=== PATIENT | female | born 1995 | race Hispanic/Latino ===

== ENCOUNTER 2022-08-20 12:45 | Emergency (ER) | payer OTHER ==
[2022-08-20 13:36] LABS: #Eosinphils 0.1 10x3/uL (0.0-0.5); #Monocytes 0.4 10x3/uL (0.0-1.1); %Basophils 0.3 % (0.0-2.0); %Eosinophils 0.8 % (0.0-6.0); %Lymphocytes 15.7 % (18.0-47.0); %Monocytes 4.9 % (0.0-10.0); Hemoglobin 10.3 g/dL (12.0-15.5); Mean Corpuscular HGB CONC 33.7 g/dL (32.0-36.0); Mean Corpuscular Hemoglobin 29.3 pg (27.0-33.0); Mean Corpuscular Volume 86.9 fl (81.6-98.3); Mean Platelet Volume 10.2 fl (7.4-10.4); Platelet Count 390 10x3/uL (150-450); RBC Distribution Width 12.1 % (11.5-14.5); Red Blood Cell (RBC) Count 3.52 10x6/uL (3.90-5.03)
[2022-08-20 13:48] LABS: ALT (SGPT) 33 U/L (8-55); AST (SGOT) 22 U/L (5-34); Albumin 3.3 g/dL (3.5-5.0); Alkaline Phosphatase 159 U/L (40-110); Anion Gap 14 mmol/L (10-20); BUN (Urea Nitrogen) 6 mg/dL (7.0-18.7); Bilirubin, Total 0.6 mg/dL (0.2-1.2); Calc. Creatinine Clearance 0 mL/min (70-130); Calcium 8.7 mg/dL (7.8-10.44); Carbon Dioxide 19 mmol/L (22-29); Chloride 108 mmol/L (98-107); Estimated GFR 127; Glucose 122 mg/dL (70-105); Potassium 3.9 mmol/L (3.5-5.1); Protein, Total 6.3 g/dL (6.0-8.3); Sodium 137 mmol/L (136-145)
[2022-08-20 15:07] LABS: Syphilis Antibody Nonreactive (Nonreactive); Syphilis Antibody Index 0.02 S/CO (<1.00 Non-Reactive)
[2022-08-20 15:09] LABS: HIV (1/2) Antibody/Antigen Non-Reactive (NonReactive); HIV 1/2 INDEX 0.08 S/CO (<1.00)
== END 2022-08-20 14:19 | disposition home or self-care (01) ==
LOC: CSHERS 12:45
DX: O99.891 Other specified diseases and conditions complicating pregnancy (principal); R06.02 Shortness of breath; Z3A.36 36 weeks gestation of pregnancy
CPT/HCPCS: 36415; 71045; 80053; 83880; 84484; 85025; 86780; 87389; 93005

== ENCOUNTER 2022-09-09 19:00 | Inpatient (IN) | payer OTHER ==
[2022-09-10] MEDS ORDERED: Terbutaline Sulfate 1 MG/ML VIAL ONE (08:00)
[2022-09-10] MEDS ORDERED: Bupivacaine PF 0.5% 30 ML VIAL ONE (08:00)
[2022-09-10] MEDS ORDERED: ePHEDrine Sulfate 50 MG/10 ML VIAL ONE (08:00)
[2022-09-10 14:30] VITALS: BMI 50.1
[2022-09-10] MEDS ORDERED: Acetaminophen 500 MG TAB PO PRN (14:38)
[2022-09-10] MEDS ORDERED: Carboprost 250 MCG/ML AMP IM PRN (14:38)
[2022-09-10] MEDS ORDERED: Methylergonovine 0.2 MG/ML VIAL IM PRN (14:38)
[2022-09-10] MEDS ORDERED: Docusate 100 MG CAP PO PRN (14:38)
[2022-09-10] MEDS ORDERED: Misoprostol 200 MCG TAB PR PRN (14:38)
[2022-09-10] MEDS ORDERED: Ondansetron PF 4 MG/2 ML Vial IVP PRN (14:38)
[2022-09-10] MEDS ORDERED: Lidocaine 1% (PF) 30 ML VIAL SC PRN (14:38)
[2022-09-10] MEDS ORDERED: Ibuprofen 800 MG TAB PO PRN (14:38)
[2022-09-10] MEDS ORDERED: hydrALAZINE 20 MG/ML VIAL SLOW IVP PRN (14:38)
[2022-09-10] MEDS ORDERED: NS w/ Oxytocin 30 units 500 ML IV SCH ×2 (14:45)
[2022-09-10 15:28] LABS: Hemoglobin 11.2 g/dL (12.0-15.5); Mean Corpuscular HGB CONC 33.4 g/dL (32.0-36.0); Mean Corpuscular Hemoglobin 28.9 pg (27.0-33.0); Mean Corpuscular Volume 86.6 fl (81.6-98.3); Mean Platelet Volume 10.1 fl (7.4-10.4); Platelet Count 369 10x3/uL (150-450); RBC Distribution Width 12.9 % (11.5-14.5); Red Blood Cell (RBC) Count 3.87 10x6/uL (3.90-5.03); White Blood Cell (WBC) Count 5.5 10x3/uL (3.5-10.5)
[2022-09-10 15:49] LABS: SARS-CoV-2 NAA Rapid Test DETECTED (NotDetected)
[2022-09-10 15:57] LABS: Syphilis Antibody Nonreactive (Nonreactive); Syphilis Antibody Index 0.02 S/CO (<1.00 Non-Reactive)
[2022-09-10 15:58] LABS: HBSAg Index 0.12 S/CO (0-0.99); Hep B Surf Ag Non-Reactive S/CO (NonReactive)
[2022-09-10] MEDS: Misoprostol 100 MCG TAB VAG SCH ×2 (16:04→19:03)
[2022-09-10 19:02] LABS: ALT (SGPT) 19 U/L (8-55); AST (SGOT) 17 U/L (5-34); Albumin 3.4 g/dL (3.5-5.0); Alkaline Phosphatase 158 U/L (40-110); Anion Gap 15 mmol/L (10-20); BUN (Urea Nitrogen) 7 mg/dL (7.0-18.7); Bilirubin, Total 0.5 mg/dL (0.2-1.2); CRP (Inflammatory) 2.72 mg/dL (= or < 0.5); Calc. Creatinine Clearance 304 mL/min (70-130); Calcium 8.9 mg/dL (7.8-10.44); Carbon Dioxide 18 mmol/L (22-29); Chloride 110 mmol/L (98-107); Estimated GFR 130; Globulin 3.1 g/dL (2.4-3.5); Glucose 110 mg/dL (70-105); Potassium 4.1 mmol/L (3.5-5.1); Protein, Total 6.5 g/dL (6.0-8.3); Sodium 139 mmol/L (136-145)
[2022-09-11] MEDS ORDERED: Fentanyl 2 mcg/Bup 0.1% Cadd 100 ML ONE (02:44)
[2022-09-11] MEDS ORDERED: Promethazine HCl 25 MG/ML VIAL IM PRN (03:37)
[2022-09-11] MEDS ORDERED: Naloxone HCl 0.4 mg/ml Vial IVP PRN ×2 (03:37)
[2022-09-11] MEDS ORDERED: diphenhydrAMINE 50 MG/ML VIAL IVP PRN (03:37)
[2022-09-11] MEDS ORDERED: Ondansetron PF 4 MG/2 ML Vial IVP PRN (03:37)
[2022-09-11] MEDS ORDERED: ePHEDrine Sulfate 50 MG/10 ML VIAL SLOW IVP PRN (03:37)
[2022-09-11] MEDS ORDERED: Acetaminophen 325 MG TAB PO PRN (03:37)
[2022-09-11] MEDS ORDERED: Moisturizing Cream (Eucerin) 113 GM JAR TOP PRN (03:37)
[2022-09-11] MEDS ORDERED: Lactated Ringer's 500 ML IV PRN (03:37)
[2022-09-11] MEDS ORDERED: Communication Order-Pharmacy FS SCH (03:45)
[2022-09-11] MEDS ORDERED: Fentanyl 2 mcg/Bupivacaine 0.1% Cassette 100 ML EPIDURAL SCH (03:45)
[2022-09-11] MEDS ORDERED: Boostrix 0.5 ML (Tdap) VIAL (>/=7 yrs of age) IM ONE (08:54)
[2022-09-11] MEDS ORDERED: diphenhydrAMINE 25 MG CAP PO PRN (08:54)
[2022-09-11] MEDS ORDERED: Lanolin Ointment 7 GM TUBE TOP PRN (08:54)
[2022-09-11] MEDS ORDERED: Simethicone Chewable 80 MG TAB PO PRN (08:54)
[2022-09-11] MEDS ORDERED: CEFAZOLIN 2 GM VIAL ONE (08:58)
[2022-09-11] MEDS ORDERED: Azithromycin 500 MG VIAL ONE (08:58)
[2022-09-11] MEDS ORDERED: Oxytocin 10 UNITS/ML VIAL ONE (08:58)
[2022-09-11] MEDS ORDERED: EPINEPHrine 1 MG/10 ML Abboject SYRINGE ONE (08:59)
[2022-09-11] MEDS ORDERED: Lidocaine 2% MPF 10 ML AMP (For Epidural Use) ONE (08:59)
[2022-09-11] MEDS ORDERED: Phenylephrine 10 MG/ML VIAL ONE (09:03)
[2022-09-11] MEDS ORDERED: Azithromycin 500 MG in Sodium Chloride 0.9% 250 ML 250 ML IVPB SCH (09:15)
[2022-09-11] MEDS ORDERED: Bisacodyl 10 MG SUPP PR PRN (11:16)
[2022-09-11] MEDS ORDERED: Preparation H Ointment 28 GM TUBE PR PRN (11:16)
[2022-09-11] MEDS ORDERED: Benzocaine-Menthol 82.5 ML CAN TOP PRN (11:16)
[2022-09-11] MEDS ORDERED: Milk Of Magnesia 30 ML UDCUP PO PRN (11:16)
[2022-09-11] MEDS: Ibuprofen 800 MG TAB PO SCH ×2 (13:37→21:25)
[2022-09-11] MEDS ORDERED: CEFAZOLIN 1 GM VIAL SLOW IVP SCH (14:00)
[2022-09-12 03:48] VITALS: TEMP 97.7
[2022-09-12] MEDS ORDERED: HYDROcodone/Acetaminophen 5/325 mg Tablet PO PRN ×2 (04:00)
[2022-09-12 05:18] LABS: Hemoglobin 8.1 g/dL (12.0-15.5); Mean Corpuscular HGB CONC 32.4 g/dL (32.0-36.0); Mean Corpuscular Volume 89.6 fl (81.6-98.3); Mean Platelet Volume 10.4 fl (7.4-10.4); Platelet Count 308 10x3/uL (150-450); RBC Distribution Width 12.8 % (11.5-14.5); Red Blood Cell (RBC) Count 2.79 10x6/uL (3.90-5.03); White Blood Cell (WBC) Count 6.3 10x3/uL (3.5-10.5)
[2022-09-12] MEDS: Ibuprofen 800 MG TAB PO SCH (05:25)
[2022-09-12] MEDS ORDERED: Ferrous Gluconate 324 MG TAB PO SCH (08:00)
[2022-09-12 08:26] VITALS: BP 116/53
[2022-09-12] MEDS: Misoprostol 100 MCG TAB VAG SCH (08:38)
[2022-09-12] MEDS ORDERED: diphenhydrAMINE 50 MG CAP PO PRN (08:39)
[2022-09-12] MEDS ORDERED: Azithromycin 500 MG in Sodium Chloride 0.9% 250 ML 250 ML IVPB SCH (09:15)
== END 2022-09-12 13:45 | disposition home or self-care (01) | DRG 805 ==
LOC: CSHLD 09-10 13:50 → CSHPED 09-11 11:45
PROVIDERS: ADMIT Family Medicine; ATTEND Family Medicine
PROC: 3E0P7VZ Introduction of Hormone into Female Reproductive, Via Natural or Artificial Opening (ICD-10-PCS; 2022-09-10)
PROC: 8E0ZXY6 Isolation (ICD-10-PCS; 2022-09-10)
PROC: 10E0XZZ Delivery of Products of Conception, External Approach (ICD-10-PCS; principal; 2022-09-11)
PROC: 10907ZC Drainage of Amniotic Fluid, Therapeutic from Products of Conception, Via Natural or Artificial Opening (ICD-10-PCS; 2022-09-11)
DX: O99.214 Obesity complicating childbirth (principal); U07.1 COVID-19; Z37.0 Single live birth; O98.52 Other viral diseases complicating childbirth; E66.01 Morbid (severe) obesity due to excess calories; Z3A.39 39 weeks gestation of pregnancy; D64.9 Anemia, unspecified; O99.02 Anemia complicating childbirth; Z79.82 Long term (current) use of aspirin; O76 Abnormality in fetal heart rate and rhythm complicating labor and delivery; I95.9 Hypotension, unspecified; O99.42 Diseases of the circulatory system complicating childbirth; O69.81X0 Labor and delivery complicated by cord around neck, without compression, not applicable or unspecified; Z88.8 Allergy status to other drugs, medicaments and biological substances
CPT/HCPCS: 36415; 51702; 80053; 82570; 82728; 84156; 85027; 86140; 86780; 86850; 86900; 86901; 87340; J0171; J2370; J2590; J3105; S0020; U0002

== ENCOUNTER 2023-10-31 11:23 | Day surgery (SDC) | payer OTHER ==
[2023-10-31] MEDS ORDERED: Acetaminophen 500 MG TAB ONE (11:38)
[2023-10-31] MEDS ORDERED: Iron Sucrose Complex 500 MG in Sodium Chloride 0.9% 250 ML 250 ML IVPB SCH (11:45)
[2023-10-31] MEDS ORDERED: Acetaminophen 500 MG TAB PO SCH (11:45)
== END 2023-10-31 16:20 | disposition home or self-care (01) ==
LOC: CSHSDC 11:23
PROVIDERS: ATTEND Family Medicine
DX: O99.013 Anemia complicating pregnancy, third trimester (principal); Z3A.00 Weeks of gestation of pregnancy not specified
CPT/HCPCS: J1756; J7050